=== PATIENT | female | born 1960 | race Caucasian/White ===

== ENCOUNTER 2016-03-22 00:53 | Emergency (ER) | payer OTHER ==
--- NOTE | 2016-03-22 01:31 | ER Document Report ---
ED General - General Chief Complaint: Productive Cough Stated Complaint: COUGHING BLOOD Time seen by provider: 01:30 Notes: Patient is a 55-year-old female that comes emergency department for chief complaint of an episode earlier this evening where she began to cough, coughed up a small amount of blood, felt nauseated, and noticed that she was bleeding from her nose. Patient is on Effient because of a history of heart stents. Patient states that she is no longer coughing up any blood and no longer has bleeding from her nose but she states she became very anxious. Patient is medicated for blood pressure, states she has been compliant with this. TRAVEL OUTSIDE OF THE [place] IN LAST 30 DAYS: No - Related Data Allergies/Adverse Reactions: morphine [Morphine] Allergy (Severe, Verified 03/22/16 01:48) rash, swelling, itching procaine HCl [From Novocain] Allergy (Severe, Verified 03/22/16 01:48) tongue, throat swelling, sob, htn codeine [Codeine] Allergy (Intermediate, Verified 03/22/16 01:48) Nausea hydromorphone HCl [From Dilaudid] Allergy (Mild, Verified 03/22/16 01:48) Itching Opioids - Morphine Analogues [Opioids-Morphine & Related] Allergy (Verified 01:48) Past Medical History - General Information source: Patient - Social History Smoking Status: Current Every Day Smoker Chew tobacco use (# tins/day): No Frequency of alcohol use: None Drug Abuse: None Lives with: Family Family History: Reviewed & Not Pertinent Patient has suicidal ideation: No Patient has homicidal ideation: No - Past Medical History Cardiac Medical History: Reports: Hx Hypertension Denies: Hx Congestive Heart Failure, Hx Heart Attack Pulmonary Medical History: Denies: Hx Asthma, Hx Bronchitis, Hx COPD, Hx Pneumonia, Hx Tuberculosis Neurological Medical History: Reports: Hx Migraine. Denies: Hx Seizures Endocrine Medical History: Reports: Hx Hypothyroidism Renal/ Medical History: Denies: Hx End Stage Renal Disease, Hx Kidney Stones, Hx Peritoneal Dialysis GI Medical History: Denies: Hx Cirrhosis, Hx Gastroesophageal Reflux Disease, Hx Ulcer Musculoskeltal Medical History: Denies Hx Arthritis, Denies Hx Multiple Sclerosis Psychiatric Medical History: Reports: Hx Anxiety, Hx Bipolar Disorder, Hx Depression Denies: Hx Schizophrenia Past Surgical History: Reports: Hx Abdominal Surgery, Hx Appendectomy, Hx Gynecologic Surgery - cervical cryo, Hx Thyroid Surgery, Hx Tonsillectomy - Immunizations Hx Diphtheria, Pertussis, Tetanus Vaccination: Yes Review of Systems - Review of Systems Constitutional: No symptoms reported EENT: See HPI Cardiovascular: No symptoms reported Respiratory: See HPI Gastrointestinal: See HPI Genitourinary: No symptoms reported Female Genitourinary: No symptoms reported Musculoskeletal: No symptoms reported Skin: No symptoms reported Hematologic/Lymphatic: No symptoms reported Neurological/Psychological: No symptoms reported Physical Exam - Vital signs Vitals: Temp Pulse Resp BP Pulse Ox 97.9 F 73 18 198/100 H 97 03/22/16 00:58 03/22/16 00:58 03/22/16 00:58 03/22/16 00:58 03/22/16 00:58 Interpretation: Normal - General General appearance: Anxious In distress: None - HEENT Head: Normocephalic, Atraumatic Eyes: Normal Conjunctiva: Normal Extraocular movements intact: Yes Eyelashes: Normal Pupils: PERRL Sinus: Normal Nasal: Other - Small amount of dried epistaxis in the left there. Irregular septum with a hole in the septum. Mouth/Lips: Normal Mucous membranes: Normal Pharynx: Blood in hypopharynx - Small amount of dried blood in the posterior hypopharynx, no noted current bleeding. No: Uvular edema, Potential airway comprom. Neck: Normal - Respiratory Respiratory status: No respiratory distress. No: Labored, Tachypnea Chest status: Nontender Breath sounds: Normal. No: Decreased air movement, Nonproductive cough, Stridor , Wheezing Chest palpation: Normal - Cardiovascular Rhythm: Regular Heart sounds: Normal auscultation Murmur: No - Abdominal Inspection: Normal Distension: No distension Bowel sounds: Normal Tenderness: Nontender Organomegaly: No organomegaly - Back Back: Normal, Nontender - Extremities General upper extremity: Normal inspection, Nontender, Normal color, Normal ROM , Normal temperature General lower extremity: Normal inspection, Nontender, Normal color, Normal ROM , Normal temperature, Normal weight bearing. No: Lowell's sign - Neurological Neuro grossly intact: Yes Cognition: Normal Orientation: AAOx4 Aron Coma Scale Eye Opening: Spontaneous [place] Coma Scale Verbal: Oriented Aron Coma Scale Motor: Obeys Commands [place] Coma Scale Total: 15 Speech: Normal Motor strength normal: LUE, RUE, LLE, RLE Sensory: Normal - Psychological Associated symptoms: Normal affect, Normal mood - Skin Skin Temperature: Warm Skin Moisture: Dry Skin Color: Normal Course - Re-evaluation Re-evalutation: Patient with small amount of dried blood in her left naris and at the posterior pharynx, clear lungs, no current symptoms. Patient initially anxious. Hypertensive. Discussed with patient that most likely her hemoptysis was from the epistaxis and the nausea sensation in her stomach was also likely from this. Patient requesting a chest x-ray, I did oblige. Chest x-ray was normal. Patient has not had return of epistaxis, blood pressure has normalized after discussion. Discussed epistaxis, patient is on Effient however she was not instructed to hold this because of the long duration of this medication. Patient states satisfaction with workup and evaluation, states she will return for any concerning symptoms and otherwise follow-up with her provider. - Vital Signs Vital signs: Temp Pulse Resp BP Pulse Ox 98.0 F 64 18 132/78 H 99 03/22/16 02:48 03/22/16 02:48 03/22/16 02:48 03/22/16 02:48 03/22/16 02:48 Discharge - Discharge Clinical Impression: Epistaxis, Hemoptysis Condition: Stable Disposition: HOME, SELF-CARE Additional Instructions: By examination and workup it appears that your coughing up blood was from the nosebleed. Please follow nose bleed precautions as directed. Follow-up with your primary provider. Return to the emergency department for any concerning or worsening symptoms. There is a significant chance of re-bleeding following a nosebleed. Proper care makes this less likely. Do not touch the nose for 24 hours. Do not blow the nose forcefully for one week. After 24 hours, gently apply Vaseline ointment to both nostrils with the tip of a finger, three times a day, for one week. It's normal to have a bloody mucous discharge for a few days. If active bleeding recurs, blow all the blood from the nose, then sit quietly and pinch the nose as firmly as possible for 10 minutes. If this does not stop the bleeding, return for further care. If packing was left in the nose and it starts to come out of the nostril, either tuck it back in or cut it off. Don't pull it out. Return for recheck and removal of the packing when instructed. Persons with frequent nosebleeds should avoid aspirin (unless prescribed for another reason). Humidity in the bedroom, and petroleum jelly applied to the nostrils at night may help. Forms: Elevated Blood Pressure Referrals: JETHRO GLASGOW MD [Primary Care Provider] - Follow up as needed
[2016-03-22 02:52] VITALS: BP 132/78
== END 2016-03-22 02:50 | disposition home or self-care (01) ==
LOC: ER 00:53
DX: R04.0 Epistaxis (principal); R04.2 Hemoptysis; R11.0 Nausea; F17.200 Nicotine dependence, unspecified, uncomplicated; I10 Essential (primary) hypertension; Z79.01 Long term (current) use of anticoagulants; Z88.6 Allergy status to analgesic agent
CPT/HCPCS: 71020; 99283

== ENCOUNTER 2016-09-13 08:29 | Observation (INO) | payer OTHER ==
[2016-09-13] MEDS ORDERED: ASPIRIN 81 MG TABLET, CHEWABLE PO ONE (08:45)
[2016-09-13 09:04] LABS: ABSOLUTE BASOPHILS # (AUTO) 0.1 10^3/uL (0.0-0.2); ABSOLUTE EOSINOPHILS # (AUTO) 0.4 10^3/uL (0.0-0.6); ABSOLUTE LYMPHOCYTES (AUTO) 1.7 10^3/uL (0.5-4.7); ABSOLUTE MONOCYTES (AUTO) 0.6 10^3/uL (0.1-1.4); BASOPHILS % (AUTO) 0.7 % (0-2); EOSINOPHILS % (AUTO) 5.7 % (0-6); HEMATOCRIT 40.7 % (36.0-47.0); HEMOGLOBIN 13.8 g/dL (12.0-15.5); HGB HCT DIFFERENCE 0.7; LYMPHOCYTES % (AUTO) 21.6 % (13-45); MEAN CORPUSCULAR HEMOGLOBIN 30.4 pg (27.0-33.4); MEAN CORPUSCULAR HGB CONC 33.9 g/dL (32.0-36.0); MEAN CORPUSCULAR VOLUME 90 fl (80-97); MONOCYTES % (AUTO) 7.4 % (3-13); RED BLOOD COUNT 4.53 10^6/uL (3.72-5.28); RED CELL DISTRIBUTION WIDTH 15.1 % (11.5-14.0); SEGMENTED NEUTROPHILS % (AUTO) 64.6 % (42-78); WHITE BLOOD COUNT 7.7 10^3/uL (4.0-10.5)
[2016-09-13] MEDS ORDERED: IPRATROPIUM/ALBUTEROL 0.5-2.5 MG/3 ML AMPUL NEB ONE (09:07)
[2016-09-13 09:21] LABS: ALANINE AMINOTRANSFERASE 53 U/L (9-52); ALBUMIN 3.8 g/dL (3.5-5.0); ALKALINE PHOSPHATASE 76 U/L (38-126); ANION GAP 9 (5-19); ASPARTATE AMINO TRANSFERASE 28 U/L (14-36); BILIRUBIN,DIRECT 0.4 mg/dL (0.0-0.4); BILIRUBIN,TOTAL 0.5 mg/dL (0.2-1.3); BLOOD UREA NITROGEN 11 mg/dL (7-20); CALCIUM 9.4 mg/dL (8.4-10.2); CARBON DIOXIDE 22 mmol/L (22-30); CHLORIDE 110 mmol/L (98-107); CREATINE KINASE 79 U/L (30-135); CREATININE RESULT 0.75 mg/dL (0.52-1.25); GLUCOSE 90 mg/dL (75-110); POTASSIUM 4.4 mmol/L (3.6-5.0); SODIUM 141.4 mmol/L (137-145); TOTAL PROTEIN 6.5 g/dL (6.3-8.2)
[2016-09-13 09:32] LABS: CREATINE KINASE MB 1.35 ng/mL (<4.55)
[2016-09-13 09:34] LABS: TROPONIN I 0.049 ng/mL
--- NOTE | 2016-09-13 09:45 | RADIOLOGY REPORT (SQ) ---
EXAM DESCRIPTION: CHEST SINGLE VIEW COMPLETED DATE/TIME: 09/13/2016 9:05 am REASON FOR STUDY: chest pain COMPARISON: February 2016 EXAM PARAMETERS: NUMBER OF VIEWS: One view. TECHNIQUE: Single frontal radiographic view of the chest acquired. RADIATION DOSE: NA LIMITATIONS: None. FINDINGS: LUNGS AND PLEURA: No opacities, masses or pneumothorax. No pleural effusion. MEDIASTINUM AND HILAR STRUCTURES: No masses. Contour normal. HEART AND VASCULAR STRUCTURES: Heart normal in size. Normal vasculature. BONES: No acute findings. HARDWARE: None in the chest. OTHER: No other significant finding. IMPRESSION: NO ACUTE RADIOGRAPHIC FINDING IN THE CHEST. TECHNICAL DOCUMENTATION: JOB ID: [id number]
--- NOTE | 2016-09-13 09:59 | ER Document Report ---
ED Cardiac - General Chief Complaint: Chest Pain > 30 Stated Complaint: CHEST PAIN Time Seen by Provider: 09/13/16 08:53 Notes: Patient is a 55-year-old female who presents emergency department complaining of on and off chest pain, shortness of breath and lethargy since . Patient states that she had an episode of chest pain lasting approximately 15 minutes described as a pressure in her chest with associated shortness of breath , diaphoresis, pain shooting into her jaw and in her left shoulder. Patient states that she has been having symptoms since . Become more frequent over the weekend. past medical history significant for a [place] in October 2015 and had 3 stents placed to end her RCA and one in her circumflex. Patient follows with Dr. Olga Franks guidance. Past medical history significant for hypertension, hyperlipidemia, depression, anxiety, history of Lyndsey's, history of pleurisy, history of [place] in October 2014. Past surgical history as above Social history admits to daily tobacco use. Denies any alcohol or drug use. Patient is employed on [employer] and [employer]. Primary care physician is Dr. Jethro Glasgow. TRAVEL OUTSIDE OF THE [place] IN LAST 30 DAYS: No - Related Data Allergies/Adverse Reactions: morphine [Morphine] Allergy (Severe, Verified 03/22/16 01:48) rash, swelling, itching procaine HCl [From Novocain] Allergy (Severe, Verified 03/22/16 01:48) tongue, throat swelling, sob, htn codeine [Codeine] Allergy (Intermediate, Verified 03/22/16 01:48) Nausea hydromorphone HCl [From Dilaudid] Allergy (Mild, Verified 03/22/16 01:48) Itching Opioids - Morphine Analogues [Opioids-Morphine & Related] Allergy (Verified 01:48) Past Medical History - Social History Smoking Status: Current Every Day Smoker Family History: CAD - Past Medical History Cardiac Medical History: Reports: Hx Hypertension Denies: Hx Congestive Heart Failure, Hx Heart Attack Pulmonary Medical History: Denies: Hx Asthma, Hx Bronchitis, Hx COPD, Hx Pneumonia, Hx Tuberculosis Neurological Medical History: Reports: Hx Migraine. Denies: Hx Seizures Endocrine Medical History: Reports: Hx Hypothyroidism Renal/ Medical History: Denies: Hx End Stage Renal Disease, Hx Kidney Stones, Hx Peritoneal Dialysis GI Medical History: Denies: Hx Cirrhosis, Hx Gastroesophageal Reflux Disease, Hx Ulcer Musculoskeltal Medical History: Denies Hx Arthritis, Denies Hx Multiple Sclerosis Psychiatric Medical History: Reports: Hx Anxiety, Hx Bipolar Disorder, Hx Depression Denies: Hx Schizophrenia Past Surgical History: Reports: Hx Abdominal Surgery, Hx Appendectomy, Hx Gynecologic Surgery - cervical cryo, Hx Thyroid Surgery, Hx Tonsillectomy - Immunizations Hx Diphtheria, Pertussis, Tetanus Vaccination: Yes Review of Systems - Review of Systems Constitutional: No symptoms reported Cardiovascular: See HPI Respiratory: See HPI Gastrointestinal: No symptoms reported -: Yes All other systems reviewed and negative Physical Exam - Vital signs Vitals: Resp BP Pulse Ox 9 L 144/93 H 96 09/13/16 08:45 09/13/16 08:45 09/13/16 08:45 - Notes Notes: PHYSICAL EXAM GENERAL: Alert, interacts well. HEAD: Normocephalic, atraumatic. EYES: Pupils equal, round, and reactive to light. Extraocular movements intact. ENT: Oral mucosa moist, tongue midline. NECK: Full range of motion. Supple. Trachea midline. LUNGS: Clear to auscultation bilaterally, no wheezes, rales, or rhonchi. No respiratory distress. HEART: Regular rate and rhythm. No murmurs, gallops, or rubs. ABDOMEN: Soft, nondistended, nontender. No guarding, rebound, or rigidity.. Bowel sounds present in all 4 quadrants. EXTREMITIES: Moves all 4 extremities spontaneously. No edema, radial and dorsalis pedis pulses 2/4 bilaterally. No cyanosis. NEUROLOGICAL: Alert and oriented x4. Normal speech. PSYCH: Normal affect, normal mood. SKIN: Warm, dry, normal turgor. No rashes or lesions noted. Course - Re-evaluation Re-evalutation: 09/13/16 10:01 Patient is very well in appearance, vitals within normal limits. moderate clinical suspicion for ACS given clinical history, exam, but EKG without ST elevations or depressions, and elevated initial troponin. HEART score of 5. PE also seems unlikely given clinical history, absence of tachycardia or dyspnea. Well's score of 0. CXR without evidence of pneumothorax or pneumonia. No widened mediastinum. Aortic dissection also seems unlikely given history, symmetric pulses, CXR, and vitals. At this time will admit to [facility] for stress test and repeat troponin. Patient is in agreement with this plan. Accepted under [employer] Sandi Casper - Vital Signs Vital signs: Temp Pulse Resp BP Pulse Ox 16 148/93 H 100 09/13/16 09:01 09/13/16 09:01 09/13/16 09:01 - Laboratory Result Diagrams: 09/13/16 08:52 09/13/16 08:52 Laboratory results interpreted by me: 09/13/16 09/13/16 08:52 08:52 RDW 15.1 H Chloride 110 H ALT 53 H - EKG Interpretation by Me EKG shows normal: Sinus rhythm. abnormal: ST-T Waves Rate: Normal Rhythm: NSR - Consults Sandi Casper Reason for consultation: 09/13/16 10:03 hospital admission Consulted provider: will come to ER Discharge - Discharge Clinical Impression: Chest pain Qualifiers: Chest pain type: unspecified Qualified Code(s): R07.9 - Chest pain, unspecified Admitting Provider: Hospitalist - [facility] Admitted: Telemetry Referrals: JETHRO GLASGOW MD [Primary Care Provider] - Follow up as needed
[2016-09-13] MEDS ORDERED: NITROGLYCERIN 0.4 MG/TAB 25 TAB/BOTTLE SL PRN (10:00)
[2016-09-13] MEDS ORDERED: ONDANSETRON HCL INJ/PF 4 MG/2 ML SDV IV PRN (10:00)
--- NOTE | 2016-09-13 13:59 | EKG REPORT ---
SEVERITY:- NORMAL ECG - SINUS RHYTHM : Confirmed by: Shannan Pena MD 13-Sep-2016 13:57:36
[2016-09-13] MEDS ORDERED: QUETIAPINE FUMARATE 25 MG TABLET PO SCH (14:00)
--- NOTE | 2016-09-13 14:05 | RADIOLOGY REPORT (SQ) ---
EXAM DESCRIPTION: CTA CHEST COMPLETED DATE/TIME: 09/13/2016 1:39 pm REASON FOR STUDY: Atypical chest pain with SOB, diaphoresis COMPARISON: 06/03/2013 TECHNIQUE: CT scan of the chest performed using helical scanning technique with dynamic intravenous contrast injection. Images reviewed with lung, soft tissue and bone windows. Reconstructed coronal and sagittal MPR images reviewed. Additional 3 dimensional post-processing performed to develop Maximal Intensity Projection images ([place] P). All images stored on PACS. All CT scanners at this facility use dose modulation, iterative reconstruction, and/or weight based d osing when appropriate to reduce radiation dose to as low as reasonably achievable (ALARA). [facility]: Dose Right [facility]: CareDose [facility]: Dose Right [facility]: Teradose 4D [facility]: Liazon CONTRAST TYPE AND DOSE: contrast/concentration: Isovue 370.00 mg/ml; Total Contrast Delivered: 67.0 ml; Total Saline Delivered: 110.0 ml RENAL FUNCTION: GFR > 60. RADIATION DOSE: Up-to-date CT equipment and radiation dose reduction techniques were employed. CTDIv ol: 9.4 - 15.5 mGy. DLP: 612 mGy-cm. . LIMITATIONS: None. FINDINGS: LUNGS AND PLEURA: No masses, infiltrates, pneumothorax. No pleural effusions, calcificati ons. AORTA AND GREAT VESSELS: No aneurysm or dissection. HEART: No pericardial effusion. PULMONARY ARTERIES: No emboli visualized in the main pulmonary arteries or the segmental branches. HILAR AND MEDIASTINAL STRUCTURES: No identified masses or abnormal nodes. HARDWARE: None in the chest. UPPER ABDOMEN: No significant findings. Limited exam. THYROID AND OTHER SOFT TISSUES: No masses. No adenopathy. BONES: No acute or significant finding. 3D MIPS: Confirm above findings. OTHER: No other significant finding. IMPRESSION: NORMAL CTA OF THE CHEST. NO PULMONARY EMBOLI. TECHNICAL DOCUMENTATION: JOB ID: [id number] Quality ID # [id number]: Final reports with documentation of one or more dose reduction techniques (e.g., Au tomated exposure control, adjustment of the mA and/or kV according to patient size, use of iterative reconstruction technique) 2010 [employer]- All Rights Reserved
--- NOTE | 2016-09-13 14:12 | PDOC H&P ---
History of Present Illness Admission Date/PCP: 09/13/16 10:08 JETHRO GLASGOW MD Patient complains of: Chest pain and shortness of breath History of Present Illness: JHON HUBBARD is a 55 year old female Patient who presents emergency department complaining of on and off chest pain, shortness of breath and lethargy since . Patient states that she had an episode of chest pain lasting approximately 15 minutes described as a pressure in her chest with associated shortness of breath, diaphoresis, pain shooting into her jaw and in her left shoulder. Patient states that she has been having symptoms since . Become more frequent over the weekend. Her past medical history significant for a [place] in October 2015 and had 3 stents placed to end her RCA and one in her circumflex. Patient follows with Dr. Soliz at [facility] for [facility]ology. Past medical history significant for hypertension, hyperlipidemia, depression, anxiety, history of Lyndsey's, history of pleurisy, history of [place] in October 2014. Past surgical history as above Social history admits to daily tobacco use. Denies any alcohol or drug use. Patient is [place] in [employer]. Past Medical History Cardiac Medical History: Reports: Myocardial Infarction, Hypertension Denies: Congestive Heart Failure Pulmonary Medical History: Denies: Asthma, Bronchitis, Chronic Obstructive Pulmonary Disease (COPD), Pneumonia, Tuberculosis EENT Medical History: Reports: None Neurological Medical History: Reports: None, Migraine Denies: Seizures Endocrine Medical History: Reports: Hypothyroidism Renal/ Medical History: Reports: None Denies: End Stage Renal Disease Malignancy Medical History: Reports: None GI Medical History: Denies: Cirrhosis, Gastroesophageal Reflux Disease Musculoskeltal Medical History: Denies: Arthritis Skin Medical History: Reports: None Psychiatric Medical History: Reports: None, Bipolar Disorder, Depression Traumatic Medical History: Reports: None Hematology: Reports: None Denies: Anemia, Bleeding Tendencies Past Surgical History Past Surgical History: Reports: Appendectomy, Tonsillectomy Social History Information Source: Patient Lives with: Spouse/Significant other Smoking Status: Current Every Day Smoker Cigarettes Packs Per Day: 0.5 Number of Years Smokin Frequency of Alcohol Use: Rare Hx Recreational Drug Use: No Hx Prescription Drug Abuse: No - Advance Directive Resuscitation Status: Full Code Family History Family History: CAD Parental Family History Reviewed: Yes Children Family History Reviewed: Yes Sibling(s) Family History Reviewed.: Yes Medication/Allergy Home Medications: Aspirin [Aspirin 81 mg Chewable Tablet] 81 mg PO DAILY 09/13/16 Atorvastatin Calcium [Lipitor 80 mg Tablet] 80 mg PO QHS 09/13/16 Levothyroxine Sodium [Synthroid] 137 mcg PO DAILY 09/13/16 Liothyronine Sodium [Cytomel 25 Mcg Tablet] 25 mcg PO QHS 09/13/16 Losartan/Hydrochlorothiazide [Hyzaar 100-12.5 Tablet] 1 tab PO QHS 09/13/16 Metoprolol Succinate 25 mg PO DAILY 09/13/16 Quetiapine Fumarate [Seroquel 25 mg Tablet] 25 mg PO TID 09/13/16 Sertraline HCl [Zoloft] 100 mg PO QHS 09/13/16 Trazodone HCl 150 mg PO QHS 09/13/16 Allergies/Adverse Reactions: morphine [Morphine] Allergy (Severe, Verified 03/22/16 01:48) rash, swelling, itching procaine HCl [From Novocain] Allergy (Severe, Verified 03/22/16 01:48) tongue, throat swelling, sob, htn codeine [Codeine] Allergy (Intermediate, Verified 03/22/16 01:48) Nausea hydromorphone HCl [From Dilaudid] Allergy (Mild, Verified 03/22/16 01:48) Itching Opioids - Morphine Analogues [Opioids-Morphine & Related] Allergy (Verified 01:48) Review of Systems Constitutional: ABSENT: chills, fever(s), headache(s), weight gain, weight loss Eyes: ABSENT: visual disturbances Ears: ABSENT: hearing changes Cardiovascular: PRESENT: chest pain, dyspnea on exertion. ABSENT: edema, orthropnea, palpitations Respiratory: PRESENT: dyspnea Gastrointestinal: ABSENT: abdominal pain, constipation, diarrhea, hematemesis, hematochezia, nausea, vomiting Genitourinary: ABSENT: dysuria, hematuria Musculoskeletal: ABSENT: joint swelling Integumentary: ABSENT: rash, wounds Neurological: ABSENT: abnormal gait, abnormal speech, confusion, dizziness, focal weakness, syncope Psychiatric: ABSENT: anxiety, depression, homidical ideation, suicidal ideation Endocrine: ABSENT: cold intolerance, heat intolerance, polydipsia, polyuria Hematologic/Lymphatic: ABSENT: easy bleeding, easy bruising Physical Exam Vital Signs: Temp Pulse Resp BP Pulse Ox 98.4 F 9 L 136/84 H 99 09/13/16 08:33 09/13/16 11:01 09/13/16 11:01 09/13/16 11:01 General appearance: PRESENT: no acute distress, well-developed, well-nourished Head exam: PRESENT: atraumatic, normocephalic Eye exam: PRESENT: conjunctiva pink, EOMI, PERRLA. ABSENT: scleral icterus Ear exam: PRESENT: normal external ear exam Mouth exam: PRESENT: moist, tongue midline Neck exam: ABSENT: carotid bruit, JVD, lymphadenopathy, thyromegaly Respiratory exam: PRESENT: clear to auscultation rian. ABSENT: rales, rhonchi, wheezes Cardiovascular exam: PRESENT: RRR. ABSENT: diastolic murmur, rubs, systolic murmur Pulses: PRESENT: normal dorsalis pedis pul Vascular exam: PRESENT: normal capillary refill GI/Abdominal exam: PRESENT: normal bowel sounds, soft. ABSENT: distended, guarding, mass, organolmegaly, rebound, tenderness Rectal exam: PRESENT: deferred Extremities exam: PRESENT: full ROM. ABSENT: calf tenderness, clubbing, pedal edema Neurological exam: PRESENT: alert, awake, oriented to person, oriented to place , oriented to time, oriented to situation, CN II-XII grossly intact. ABSENT: motor sensory deficit Psychiatric exam: PRESENT: appropriate affect, normal mood. ABSENT: homicidal ideation, suicidal ideation Skin exam: PRESENT: dry, intact, warm. ABSENT: cyanosis, rash Results Laboratory Results: 09/13/16 12:31 Troponin I 0.051 Impressions: Chest X-Ray 09/13/16 08:45 IMPRESSION: NO ACUTE RADIOGRAPHIC FINDING IN THE CHEST. Assessment & Plan - Diagnosis (1) Chest pain Qualifiers: Chest pain type: chest pain on breathing Qualified Code(s): R07.1 - Chest pain on breathing Is this a current diagnosis for this admission?: YesPlan: Pain is atypical for cardiac, she is experiencing shortness of breath which is new Will obtain serial troponins. CTA of the chest to rule out PE. Cardiolite stress test in the am. (2) Hypertension Qualifiers: Hypertension type: essential hypertension Qualified Code(s): I10 - Essential (primary) hypertension Is this a current diagnosis for this admission?: YesPlan: Will hold metoprolol for stress test in the am. Will monitor (3) Hypothyroid Qualifiers: Hypothyroidism type: acquired Qualified Code(s): E03.9 - Hypothyroidism, unspecified Is this a current diagnosis for this admission?: Yes (4) Tobacco abuse Is this a current diagnosis for this admission?: YesPlan: Counseled - Time Time Spent: 50 to 70 Minutes Critical Time spent with patient: 25-34 minutes Smoking Cessation Education: 3 to 10 minutes Medications reviewed and adjusted accordingly: Yes Anticipated discharge: Home
[2016-09-13] MEDS: ASPIRIN 81 MG TABLET, ENT COATED PO SCH (14:18)
[2016-09-13] MEDS: QUETIAPINE FUMARATE 25 MG TABLET PO SCH ×2 (14:23→18:22)
[2016-09-13] MEDS ORDERED: HYDROCHLOROTHIAZIDE 12.5 MG CAPSULE PO SCH (22:00)
[2016-09-13] MEDS ORDERED: ATORVASTATIN CALCIUM 40 MG TABLET PO SCH (22:00)
[2016-09-13] MEDS ORDERED: (PENDING PHARMACY ID) (Losartan/Hydrochlorothiazide [Hyzaar 100-12.5 Tablet] 1 TAB) PO SCH (22:00)
[2016-09-14] MEDS: TRAZODONE HCL 50 MG TABLET PO SCH ×2 (00:22→22:56)
[2016-09-14] MEDS: SERTRALINE HCL 50 MG TABLET PO SCH ×2 (00:24→22:59)
[2016-09-14] MEDS: ATORVASTATIN CALCIUM 80 MG TABLET PO SCH ×2 (00:25→22:56)
[2016-09-14] MEDS: LOSARTAN POTASSIUM 50 MG TABLET PO SCH ×2 (00:27→22:56)
[2016-09-14] MEDS: LIOTHYRONINE SODIUM 25 MCG TABLET PO SCH ×2 (00:30→23:08)
[2016-09-14] MEDS: LEVOTHYROXINE SODIUM 0.112 MG TABLET PO SCH (05:50)
[2016-09-14] MEDS: LEVOTHYROXINE SODIUM 0.025 MG TABLET PO SCH (05:50)
[2016-09-14 07:09] LABS: CHOLESTEROL 217.17 mg/dL (0-200); Direct HDL 32 mg/dL (>40); TRIGLYCERIDES 382 mg/dL (<150)
[2016-09-14 07:22] LABS: DIRECT LDL < 30 mg/dL (<100); VLDL CHOLESTEROL 76.4 mg/dL (10-31)
[2016-09-14] MEDS ORDERED: (PENDING PHARMACY ID) (Levothyroxine Sodium [Synthroid] 137 MCG) PO SCH (10:00)
[2016-09-14] MEDS ORDERED: ASPIRIN 81 MG TABLET, CHEWABLE PO SCH (10:00)
[2016-09-14] MEDS: ASPIRIN 81 MG TABLET, ENT COATED PO SCH (11:44)
[2016-09-14] MEDS: QUETIAPINE FUMARATE 25 MG TABLET PO SCH ×3 (11:44→17:25)
--- NOTE | 2016-09-14 12:43 | DRAGON STRESS TEST REPORT ---
INTRAVENOUS LEXISCAN CARDIOLITE STRESS TEST USING SINGLE PHOTON EMMISION COMPUTERIZED TOMOGRAPHIC. DATE OF PROCEDURE: September 14, 2016 INDICATION : Chest pain CARDIAC RISK FACTORS: Known CAD, tobacco abuse hypertension, dyslipidemia RESTING EKG: Sinus rhythm without any baseline ST-T wave changes STRESS EKG: No significant changes noted with LexiScan bolus REASON FOR TERMINATION: Protocol. PROCEDURE REPORT: Baseline heart rate 60 beats per minute with blood pressure of 121/66. Patient had no significant complaints. Heart rate at 2 minutes post bolus 85 with a blood pressure of 122/58. 3 minutes post bolus heart rate 73 with blood pressure of 131/62. No significant EKG changes were noted. Patient had no significant complaints during the procedure or postprocedure. Patient injected with Aminophyllin 75 mg at 3 minutes or later after Lexiscan bolus. CONCLUSIONS: Normal EKG and hemodynamic response to IV LexiScan. NUCLEAR DATA: At rest the patient was given 14.34 millicuries of technetium 99 sestamibi injected intravenously. As per protocol rest gated SPECT images were obtained. Subsequently the patient was given intravenous LexiScan at a dose of 0.4 mg in 5 mL intravenously, followed by flush with normal saline. Subsequently the stress dose of 44.6 millicuries of technetium 99 sestamibi was injected intravenously. As per protocol stress gated images were obtained. NUCLEAR INTERPRETATION: Both raw and processed data were used for interpretation. Visual, qualitative, computer-generated quantitative data was used. There was good myocardial uptake of technetium compound. Motion artifact and soft tissue attenuations were noted. Increased visceral uptake was noted. Area of mild decreased uptake noted in the basal and mid inferior wall, consistent with mild ischemia. No definitive areas of fixed perfusion defect or scars noted. EKG gated imaging showed LV EF at 60 %, rest and stress gated EF similar visually, basal inferior wall hypokinesia noted. T. I D. ratio was 1.01. Lung heart ratio noted to be within normal limits 0.36. No significant extracardiac and abnormal radiotracer activities were noted. RV free wall uptake was noted to be borderline increased. IMPRESSION: Also refer to comments under nuclear interpretation. Also test results needs to be interpreted in the context of pretest probability. 1. Mild transient perfusion defect consistent with mild ischemia noted in the basal and mid inferior wall. 2. There is no definitive scintigraphic evidence of myocardial infarction/scar. 3. EKG gated imaging shows left ejection fraction of approximately 60 %. 4. Clinical correlation requested as occasionally single vessel disease or balanced ischemia could be missed. In approximately 10% of the cases Lexiscan may not cause adequate vasodilatory stress. RECOMMENDATIONS: Aggressive risk factor modification, medical therapy. May consider heart catheterization if clinically indicated and if patient has significant symptoms. Clinical correlation with echocardiogram derived ejection fraction. Inability to exercise by itself can lead to increased cardiovascular event risks. Consider cardiology consultation and or follow-up if clinically indicated. I AM AVAILABLE FOR CARDIOLOGY CONSULTATION AND FOLLOWUP IF REQUESTED BY PMD Arya Chinchilla M.D., NOELLE Audioprosthologist floor broker, Board certified in cardiovascular diseases, Nuclear cardiology, Echocardiography Cardiac CT and cardiac MRI Ph. [phone] ELIU
[2016-09-14] MEDS ORDERED: REGADENOSON INJ 0.4 MG/5 ML DISP.SYRIN IV ONE (13:14)
[2016-09-14] MEDS ORDERED: AMINOPHYLLINE INJ/PF 250 MG/10 ML SDV IV ONE (13:14)
--- NOTE | 2016-09-14 19:41 | PDOC CONSULTATION ---
Consultation Consult Date: 09/14/16 Attending physician:: ALVAREZ RAYGOZA Consult reason:: Chest pain, positive stress test History of Present Illness Admission Date/PCP: 09/13/16 10:01 JETHRO GLASGOW MD Patient complains of: Chest pain History of Present Illness: JHON HUBBARD is a 55 year old female Patient who presents emergency department complaining of on and off chest pain, shortness of breath and lethargy since . Patient states that she had an episode of chest pain lasting approximately 15 minutes described as a pressure in her chest with associated shortness of breath, diaphoresis, pain shooting into her jaw and in her left shoulder. Patient states that she has been having symptoms since . Become more frequent over the weekend. Her past medical history significant for a WA in October 2015 and had 3 stents placed to end her RCA and one in her circumflex. Patient follows with Dr. Soliz at [facility] for cardiology. Past medical history significant for hypertension, hyperlipidemia, depression, anxiety, history of Lyndsey's, history of pleurisy, history of WA in October 2014. Past surgical history as above Social history admits to daily tobacco use. Denies any alcohol or drug use. [place] [employer]. Patient underwent a stress test today which showed mild ischemia involving the basal and mid inferior wall. No other high risk features were noted. Patient attempted to walk this afternoon and was noted to have chest discomfort. She denied any resting discomfort since admission. Patient claims compliance with medication but she was supposed to be on dual antiplatelet therapy but seems to be taking only aspirin. Past Medical History Cardiac Medical History: Reports: Myocardial Infarction, Hypertension Denies: Congestive Heart Failure Pulmonary Medical History: Denies: Asthma, Bronchitis, Chronic Obstructive Pulmonary Disease (COPD), Pneumonia, Tuberculosis EENT Medical History: Reports: None Neurological Medical History: Reports: None, Migraine Denies: Seizures Endocrine Medical History: Reports: Hypothyroidism Renal/ Medical History: Reports: None Denies: End Stage Renal Disease Malignancy Medical History: Reports: None GI Medical History: Denies: Cirrhosis, Gastroesophageal Reflux Disease Musculoskeltal Medical History: Denies: Arthritis Skin Medical History: Reports: None Psychiatric Medical History: Reports: None, Bipolar Disorder, Depression Traumatic Medical History: Reports: None Hematology: Reports: None Denies: Anemia, Bleeding Tendencies Past Surgical History Past Surgical History: Reports: Appendectomy, Cardiac Catheterization, Coronary Stent - Stent in the circumflex and right coronary artery placed October 2015 , Tonsillectomy Social History Information Source: Patient Lives with: Spouse/Significant other Smoking Status: Current Every Day Smoker Cigarettes Packs Per Day: 0.5 Number of Years Smokin Frequency of Alcohol Use: Rare Hx Recreational Drug Use: No Hx Prescription Drug Abuse: No - Advance Directive Resuscitation Status: Full Code Family History Family History: CAD Parental Family History Reviewed: Yes Children Family History Reviewed: Yes Sibling(s) Family History Reviewed.: Yes Medication/Allergy Home Medications: Aspirin [Aspirin 81 mg Chewable Tablet] 81 mg PO DAILY 09/13/16 Atorvastatin Calcium [Lipitor 80 mg Tablet] 80 mg PO QHS 09/13/16 Levothyroxine Sodium [Synthroid] 137 mcg PO DAILY 09/13/16 Losartan/Hydrochlorothiazide [Hyzaar 100-12.5 Tablet] 1 tab PO QHS 09/13/16 Metoprolol Succinate 25 mg PO DAILY 09/13/16 Quetiapine Fumarate [Seroquel 25 mg Tablet] 25 mg PO TID 09/13/16 Sertraline HCl [Zoloft] 100 mg PO QHS 09/13/16 Trazodone HCl 150 mg PO QHS 09/13/16 Famotidine [Pepcid 20 mg Tablet] 20 mg PO BID #12 tablet 09/14/16 Liothyronine Sodium [Cytomel 25 Mcg Tablet] 25 mcg PO QHS tablet 09/14/16 Allergies/Adverse Reactions: morphine [Morphine] Allergy (Severe, Verified 03/22/16 01:48) rash, swelling, itching procaine HCl [From Novocain] Allergy (Severe, Verified 03/22/16 01:48) tongue, throat swelling, sob, htn codeine [Codeine] Allergy (Intermediate, Verified 03/22/16 01:48) Nausea hydromorphone HCl [From Dilaudid] Allergy (Mild, Verified 03/22/16 01:48) Itching Opioids - Morphine Analogues [Opioids-Morphine & Related] Allergy (Verified 01:48) Review of Systems Review of Systems: Please see history of present illness and past medical history as wall. Constitutional: No fever or chills reported. Head : No recent chronic headaches, recent head injury. Eyes: No recent eye pain, diplopia, redness, discharge, acute visual changes. Ears: No recent chronic ear pain, acute hearing loss, ear discharge. Oral cavity: No recent ulcerations, bleeding, oral cavity discomfort. Neck: No recent acute neck pain reported. Hematologic: No recent easy bruising or bleeding or hematologic malignancy reported. Lymphatic: No recent lymphatic malignancy, chronic lymphadenopathy reported yet Cardiovascular system review: See history of present illness. Respiratory system review: No recent chronic cough, hemoptysis, blood clots in the lungs reported. Mild Shortness of breath on exertion Gastrointestinal system review: Negative for any recent acute or chronic abdominal pain, hematemesis, melena, recent change in bowel habits. Genitourinary system review: No recent acute or chronic hematuria, flank pain, UTI etc. reported. Skin system review: Negative for any recent abnormal bruising, no rash, no pruritus reported. Neurologic: No prior history of strokes, mini strokes, seizure disorder. Psychologic: No history of major psychosis or major depression reported. Musculoskeletal: Minor aches and pains reported. No acute joint swelling reported. Endocrine: No recent polyuria, polydipsia, recent heat or cold intolerance. Physical Exam Vital Signs: Temp Pulse Resp BP Pulse Ox 97.6 F 77 19 146/81 H 98 09/14/16 15:55 09/14/16 15:55 09/14/16 15:55 09/14/16 15:55 09/14/16 15:55 Intake & Output 09/13/16 09/14/16 09/15/16 06:59 06:59 06:59 Intake Total 969 222 Balance 969 222 Weight 103.2 kg Exam: GENERAL: well-nourished and in no acute distress. Alert and oriented x3 HEAD: Atraumatic, normocephalic. EYES: Pupils equal round and reactive to light, extraocular movements intact, sclera anicteric, conjunctiva are normal. ENT: TMs normal, nares patent, oropharynx clear without exudates. Moist mucous membranes. No oral ulcerations or bleeding gums noted NECK: supple without lymphadenopathy. Trachea is central. No cervical or axillary lymphadenopathy noted. Carotids are 2+, JVD WNL LUNGS: Respiration seems nonlabored, no significant accessory muscle action noted. Breath sounds clear to auscultation bilaterally and equal noted. No wheezes rales or rhonchi noted. No significant dullness noted on percussion. CHEST: Palpation of the chest wall shows no significant chest wall tenderness. No other significant abnormalities noted. HEART: [place] NURSE CHARGE RN, No PSH, 1/6 ANNA aortic area, 1/6 lopez systolic murmur mitral area, no rubs, no gallops. ABDOMEN: Soft, no significant tenderness appreciated, normoactive bowel sounds. No guarding, no rebound. No rigidity noted . No masses appreciated. EXTREMITIES: Pedal pulses are 1-2+, no calf tenderness noted. No clubbing or cyanosis.trace to 1+ pedal edema noted NEUROLOGICAL: Focused neurological exam showed no significant neurologic deficit. Normal speech, no focal weakness appreciated. PSYCH: Normal mood, normal affect. Judgment and insight within normal limits. SKIN: No significant ecchymosis, rash, ulcerations or signs of pruritus noted. MUSCULOSKELETAL EXAM: No significant joint swelling noted. Results Laboratory Results: 09/14/16 06:30 Triglycerides 382 H Cholesterol 217.17 H LDL Cholesterol Direct < 30 VLDL Cholesterol 76.4 H HDL Cholesterol 32 L 09/13/16 09/13/16 09/14/16 12:31 18:27 00:21 Troponin I 0.051 0.049 0.040 09/14/16 06:30 Troponin I 0.027 EKG Comments: Sinus rhythm, minor nonspecific T-wave inversion noted. Impressions: Chest/Abdomen CTA 09/13/16 00:00 IMPRESSION: NORMAL CTA OF THE CHEST. NO PULMONARY EMBOLI. Chest X-Ray 09/13/16 08:45 IMPRESSION: NO ACUTE RADIOGRAPHIC FINDING IN THE CHEST. Assessment & Plan - Diagnosis (1) Acute coronary syndrome Is this a current diagnosis for this admission?: Yes (2) Coronary artery disease Qualifiers: Coronary Disease-Associated Artery/Lesion type: [place] artery [place] vs. transplanted heart: [place] heart Associated angina: with unstable angina Qualified Code(s): I25.110 - Atherosclerotic heart disease of [place] coronary artery with unstable angina pectoris Is this a current diagnosis for this admission?: Yes (3) Chest pain Qualifiers: Chest pain type: unspecified Qualified Code(s): R07.9 - Chest pain, unspecified Is this a current diagnosis for this admission?: Yes (4) Hypertension Qualifiers: Hypertension type: essential hypertension Qualified Code(s): I10 - Essential (primary) hypertension Is this a current diagnosis for this admission?: Yes (5) Hypothyroid Qualifiers: Hypothyroidism type: acquired Qualified Code(s): E03.9 - Hypothyroidism, unspecified Is this a current diagnosis for this admission?: Yes (6) Tobacco abuse Is this a current diagnosis for this admission?: Yes - Notes Notes: Acute coronary syndrome: This is strongly suspected based on patient's symptoms , positive stress test and some minor nonspecific T-wave inversion. At this point will treat patient with full dose anticoagulation, antiplatelet therapy, statins, beta-ivan, angiotensin receptor blockers. Have added Ranexa. Coronary artery disease: Patient gives history of stent placement in October. Currently symptoms indicative of acute coronary syndrome. Discussed pursuing heart catheterization. Patient unwilling to decide today. Will talk about it also in the morning. Chest pain: Most likely related to cardiac ischemia but will go ahead and place her on some proton pump inhibitors. Hypertension: Reasonably well controlled. Blood pressure goal in this patient is 135/85 or less. This was discussed with the patient. Currently blood pressure under reasonable control. Better medication for this patient are MARJAN inhibitor/ARB/beta ivan etc. discussed side effects of uncontrolled hypertension and also severe hypotension. Tobacco abuse: Patient has been advised to quit smoking. She is not keeping any commitment to quit at this point. Hypothyroidism: Continue replacement therapy. Dyslipidemia: Continue high potency statin therapy. - Time Time Spent: 50 to 70 Minutes - CODE STATUS was discussed, patient remains full code. Surrogate decision-maker unchanged. Multiple medical problems were addressed. More than 50% of the time spent coordinating care, discussing management plans with involved caregivers. Management plans discussed with involved personnels. Medical decision making was of moderate to high complexity , patient's has multiple comorbidities. Medications reviewed and adjusted accordingly: Yes
--- NOTE | 2016-09-14 19:47 | XCELERA REPORT ---
[address] [address] Transthoracic Echocardiogram Report Name: JHON HUBBARD Age: 55 yrs Gender: Female : 1960 Patient Status: Inpatient Patient Location: 3W\S\320\S\A Study Date: 09/14/2016 03:13 PM Height: 66 in Weight: 227 lb BSA: 2.1 m2 Procedure: A complete two-dimensional transthoracic echocardiogram was performed (2D, M-mode, spectral and color flow Doppler). The study was technically adequate with some images being suboptimal in quality. Reason For Study: CP to today Ordering Physician: ARYA AGUILAR Performed By: Georgiana Hyman Interpretation Summary The left ventricular ejection fraction is normal. There is mild concentric left ventricular hypertrophy. Doppler measurements suggest pseudonormalized left ventricular relaxation, which is associated with grade II/IV or mild to moderate diastolic dysfunction The left ventricle is grossly normal size. Wall motion cannot be accurately commented on, but no definite regional wall motion abnormalities noted. The right ventricular systolic function is normal. The right atrium is normal in size The left atrial size is normal. There is no mitral valve stenosis. There is a trace amount of mitral regurgitation No aortic regurgitation is present. There is no aortic valve stenosis There is a trace or physiologic amount of tricuspid regurgitation Tricuspid regurgitation jet envelope not well defined to measure RV systolic pressure accurately. There is no pericardial effusion. MMode/2D Measurements \T\ Calculations RVDd: 2.9 cm LVIDd: 4.4 cm FS: 33.7 % Ao root diam: 3.4 cm IVSd: 1.1 cm LVIDs: 2.9 cm EDV(Teich): 86.3 ml LVPWd: 1.3 cm ESV(Teich): 32.1 ml Ao root area: 9.3 cm2 EF(Teich): 62.8 % LA dimension: 3.4 cm LVOT diam: 2.0 cm LVOT area: 3.3 cm2 Doppler Measurements \T\ Calculations MV E max patria: MV P1/2t max patria: Ao V2 max: LV V1 max P.5 cm/sec 77.0 cm/sec 151.3 cm/sec 8.6 mmHg MV A max patria: MV P1/2t: 70.7 msec Ao max PG: LV V1 max: 72.1 cm/sec MVA(P1/2t): 3.1 cm2 9.2 mmHg 146.6 cm/sec MV E/A: 1.1 MV dec slope: BAYRON(V,D): 3.2 cm2 319.0 cm/sec2 PA V2 max: TR max patria: 100.7 cm/sec 208.5 cm/sec PA max PG: TR max P.4 mmHg 4.1 mmHg Left Ventricle The left ventricle is grossly normal size. There is mild concentric left ventricular hypertrophy. The left ventricular ejection fraction is normal. Doppler measurements suggest pseudonormalized left ventricular relaxation, which is associated with grade II/IV or mild to moderate diastolic dysfunction. Wall motion cannot be accurately commented on, but no definite regional wall motion abnormalities noted. Right Ventricle The right ventricle is grossly normal size. There is normal right ventricular wall thickness. The right ventricular systolic function is normal. Atria The right atrium is normal in size. The left atrial size is normal. Interarterial septum not well visualized and not well dopplered. Cannot comment on ASD/PFO presence. Mitral Valve The mitral valve is grossly normal. There is no mitral valve stenosis. There is a trace amount of mitral regurgitation. Aortic Valve The aortic valve is grossly normal. There is no aortic valve stenosis. No aortic regurgitation is present. Tricuspid Valve The tricuspid valve is not well visualized, but is grossly normal. There is no tricuspid stenosis. There is a trace or physiologic amount of tricuspid regurgitation. Tricuspid regurgitation jet envelope not well defined to measure RV systolic pressure accurately. Pulmonic Valve The pulmonic valve is not well visualized. Great Vessels The aortic root is not well visualized but is probably normal size. The inferior vena cava appeared normal and decreased > 50% with respiration (RAP 5-10 mmHg). Effusions There is no pericardial effusion. : ARYA AGUILAR > Arya Aguilar
[2016-09-14] MEDS ORDERED: LANSOPRAZOLE 30 MG TAB.RAP.DR PO ONE (20:00)
[2016-09-14] MEDS ORDERED: RANOLAZINE 500 MG TAB.SR.12H PO ONE (20:00)
[2016-09-14] MEDS ORDERED: ISOSORBIDE MONONITRATE 30 MG TAB.ER.24H PO ONE (20:00)
[2016-09-14] MEDS ORDERED: CLOPIDOGREL BISULFATE 300 MG TABLET PO ONE (20:00)
[2016-09-14] MEDS: METOPROLOL SUCCINATE 25 MG TAB.SR.24H PO SCH (22:58)
[2016-09-14] MEDS: ENOXAPARIN SODIUM INJ 100 MG/1 ML DISP.SYRIN SUBCUT SCH (23:01)
[2016-09-15] MEDS: LEVOTHYROXINE SODIUM 0.112 MG TABLET PO SCH (05:44)
[2016-09-15] MEDS: LEVOTHYROXINE SODIUM 0.025 MG TABLET PO SCH (05:44)
[2016-09-15 06:36] LABS: HEMATOCRIT 40.4 % (36.0-47.0); HEMOGLOBIN 13.6 g/dL (12.0-15.5); HGB HCT DIFFERENCE 0.4; MEAN CORPUSCULAR HEMOGLOBIN 30.2 pg (27.0-33.4); MEAN CORPUSCULAR HGB CONC 33.6 g/dL (32.0-36.0); MEAN CORPUSCULAR VOLUME 90 fl (80-97); RED BLOOD COUNT 4.49 10^6/uL (3.72-5.28); RED CELL DISTRIBUTION WIDTH 14.8 % (11.5-14.0); WHITE BLOOD COUNT 6.5 10^3/uL (4.0-10.5)
[2016-09-15 08:31] VITALS: BP 108/66
[2016-09-15] MEDS ORDERED: CLOPIDOGREL BISULFATE 300 MG TABLET PO SCH (10:00)
[2016-09-15] MEDS ORDERED: ISOSORBIDE MONONITRATE 30 MG TAB.ER.24H PO SCH (10:00)
[2016-09-15] MEDS ORDERED: FENOFIBRATE NANOCRYSTALLIZED 48 MG TABLET PO SCH (10:00)
[2016-09-15] MEDS ORDERED: RANOLAZINE 500 MG TAB.SR.12H PO SCH (10:00)
[2016-09-15] MEDS ORDERED: CLOPIDOGREL BISULFATE 75 MG TABLET PO SCH (10:00)
[2016-09-15] MEDS: ENOXAPARIN SODIUM INJ 100 MG/1 ML DISP.SYRIN SUBCUT SCH (10:04)
[2016-09-15] MEDS: QUETIAPINE FUMARATE 25 MG TABLET PO SCH (10:10)
[2016-09-15] MEDS: ASPIRIN 81 MG TABLET, ENT COATED PO SCH (10:12)
[2016-09-15] MEDS: METOPROLOL SUCCINATE 25 MG TAB.SR.24H PO SCH (10:33)
--- NOTE | 2016-09-15 11:13 | PDOC PROGRESS REPORT ---
Subjective Progress Note for:: 09/15/16 Subjective:: Patient seems to be doing better with gradual improvement. Pt is denying any chest arm or neck discomfort. Patient denying any PND, orthopnea. Patient denied any sustained palpitations, dizziness, syncope, near syncope. Patient denying any fever chills. Patient denying any other significant discomfort. Patient is maintaining sinus rhythm. Mild intermittent bradycardia noted but asymptomatic. Review of systems: Rest review of systems negative. Medications: Medications have been reviewed. Physical Exam Vital Signs: Temp Pulse Resp BP Pulse Ox 98 F 55 L 18 108/66 93 09/15/16 11:00 09/15/16 11:00 09/15/16 11:00 09/15/16 11:00 09/15/16 11:00 Intake & Output 09/14/16 09/15/16 09/16/16 06:59 06:59 06:59 Intake Total 969 337 Balance 969 337 Weight 103.2 kg 102.9 kg Exam: GENERAL: well-nourished and in no acute distress. Alert and oriented x3 HEAD: Atraumatic, normocephalic. EYES: Pupils equal round and reactive to light, extraocular movements intact, sclera anicteric, conjunctiva are normal. ENT: TMs normal, nares patent, oropharynx clear without exudates. Moist mucous membranes. No oral ulcerations or bleeding gums noted NECK: supple without lymphadenopathy. Trachea is central. No cervical or axillary lymphadenopathy noted. Carotids are 2+, JVD WNL LUNGS: Respiration seems nonlabored, no significant accessory muscle action noted. Breath sounds clear to auscultation bilaterally and equal noted. No wheezes rales or rhonchi noted. No significant dullness noted on percussion. CHEST: Palpation of the chest wall shows no significant chest wall tenderness. No other significant abnormalities noted. 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 ABDOMEN: Soft, no significant tenderness appreciated, normoactive bowel sounds. No guarding, no rebound. No rigidity noted . No masses appreciated. EXTREMITIES: Pedal pulses are 1-2+, no calf tenderness noted. No clubbing or cyanosis.trace to 1+ pedal edema noted NEUROLOGICAL: Focused neurological exam showed no significant neurologic deficit. Normal speech, no focal weakness appreciated. PSYCH: Normal mood, normal affect. Judgment and insight within normal limits. SKIN: No significant ecchymosis, rash, ulcerations or signs of pruritus noted. MUSCULOSKELETAL EXAM: No significant joint swelling noted. Results Laboratory Results: 09/15/16 06:03 09/15/16 06:03 WBC 6.5 RBC 4.49 Hgb 13.6 Hct 40.4 MCV 90 MCH 30.2 MCHC 33.6 RDW 14.8 H Plt Count 202 09/13/16 09/13/16 09/14/16 12:31 18:27 00:21 Troponin I 0.051 0.049 0.040 09/14/16 06:30 Troponin I 0.027 EKG Comments: Telemetry strips reviewed showed mild intermittent bradycardia, no sustained tachyarrhythmias noted Impressions: Chest/Abdomen CTA 09/13/16 00:00 IMPRESSION: NORMAL CTA OF THE CHEST. NO PULMONARY EMBOLI. Chest X-Ray 09/13/16 08:45 IMPRESSION: NO ACUTE RADIOGRAPHIC FINDING IN THE CHEST. Assessment & Plan - Diagnosis (1) Acute coronary syndrome Is this a current diagnosis for this admission?: Yes (2) Coronary artery disease Qualifiers: Coronary Disease-Associated Artery/Lesion type: [place] artery [place] vs. transplanted heart: [place] heart Associated angina: with unstable angina Qualified Code(s): I25.110 - Atherosclerotic heart disease of [place] coronary artery with unstable angina pectoris Is this a current diagnosis for this admission?: Yes (3) Chest pain Qualifiers: Chest pain type: unspecified Qualified Code(s): R07.9 - Chest pain, unspecified Is this a current diagnosis for this admission?: Yes (4) Hypertension Qualifiers: Hypertension type: essential hypertension Qualified Code(s): I10 - Essential (primary) hypertension Is this a current diagnosis for this admission?: Yes (5) Hypothyroid Qualifiers: Hypothyroidism type: acquired Qualified Code(s): E03.9 - Hypothyroidism, unspecified Is this a current diagnosis for this admission?: Yes (6) Tobacco abuse Is this a current diagnosis for this admission?: Yes - Notes Notes: Acute coronary syndrome: This is strongly suspected based on patient's symptoms , positive stress test and some minor nonspecific T-wave inversion. At this point will treat patient with full dose anticoagulation, antiplatelet therapy, statins, beta-ivan, angiotensin receptor blockers. Have added Ranexa. Have added long-acting nitrates last night. Patient has been stable without any recurrent chest pain. Patient does not want heart catheterization at this time. Coronary artery disease: Patient gives history of stent placement in October. Currently symptoms indicative of acute coronary syndrome. Discussed pursuing heart catheterization. Patient wants medical therapy at this point. This will not be an unreasonable option in view of small area of mild ischemia being noted. Chest pain: Most likely related to cardiac ischemia but continue on proton pump inhibitor, Protonix preferred but not on the formulary here. Hypertension: Reasonably well controlled. Blood pressure goal in this patient is 135/85 or less. This was discussed with the patient. Currently blood pressure under reasonable control. Better medication for this patient are MARJAN inhibitor/ARB/beta ivan etc. discussed side effects of uncontrolled hypertension and also severe hypotension. Tobacco abuse: Patient has been advised to quit smoking. She is not keeping any commitment to quit at this point. Hypothyroidism: Continue replacement therapy. Dyslipidemia: Continue high potency statin therapy. Have added fenofibric acid as triglycerides were noted to be significantly elevated. In addition reduced dose of Lipitor to 40 mg p.o. nightly. Plan would be to have patient ambulate in the hallway, if she does better, consider discharge tomorrow in the morning. However if recurrent chest pain, recommend transferring to tertiary care for heart catheterization if patient is agreeable. - Time Time with patient: Greater than 35 minutes - CODE STATUS was discussed, patient remains full code. Surrogate decision-maker unchanged. Multiple medical problems were addressed. More than 50% of the time spent coordinating care, discussing management plans with involved caregivers. Management plans discussed with involved personnels. Medical decision making was of high complexity, patient's has multiple comorbidities. Medications reviewed and adjusted accordingly: Yes
--- NOTE | 2016-09-15 14:19 | PROGRESS NOTE E ---
Progress Note NAME: JHON HUBBARD : 1960 AGE: 55Y DATE: 09/14/2016 ROOM: 320 SUBJECTIVE: The patient was seen approximately 1600 on rounds. The patient states that she has not had any reoccurrence of her symptoms that brought her in. The patient states that overall she feels much improved in comparison to admission. The patient does admit to some shortness of breath with exertion, but denies any reoccurrence of chest pain. The patient has been afebrile. Her blood pressures have been in a good range, and the patient does not voice any other concerns at this time. REVIEW OF SYSTEMS: Rest of review of systems negative. MEDICATIONS: Medications have been reviewed. OBJECTIVE: GENERAL: The patient is a 55-year-old female who is awake, alert, and oriented to person, place, time, and situation. She is verbal, conversational, does not appear to be in any acute distress. VITAL SIGNS: Temperature is 98.0, pulse 65, respirations 18, blood pressure is 108/60, oxygen saturation is 93% on room air. SKIN: Warm and dry. No rash. Not diaphoretic. HEENT: Pupils equal, round, and reactive to light and accommodation. Conjunctivae is pink. No JVP. CARDIOVASCULAR SYSTEM: Heart is regular. There is no murmur or rub. CHEST: Clear, symmetrical, unlabored. ABDOMEN: Soft, nontender, nondistended. BACK: No CVA tenderness or sacral edema. EXTREMITIES: No clubbing, cyanosis, edema. PSYCHIATRIC: Patient is slightly agitated. DIAGNOSTICS: Lab values are as follows: Hematology obtained on 09/15/2016: WBCs are 6.5, hemoglobin is 13.6, hematocrit is 40.4, platelet count is 202,000. Chemistry obtained on 09/14/2016: Trig are 382, cholesterol is 217, LDL less than 30, VLDL is 76, HDL is 32. IMPRESSION AND PLAN: 1. CHEST PAIN AND PRESENCE OF CORONARY ARTERY DISEASE. The patient underwent a stress test today. Given that the patient did have some abnormal findings on stress test, will consult Cardiology for input. The patient does have known CAD, so will maximize medical therapies and follow. 2. DYSLIPIDEMIA. Will continue statin. Recommend cardiac rehab. 3. TOBACCO DEPENDENCY. Spent 3 minutes discussing smoking cessation education. The patient declines any pharmacological intervention at this time; however, will continue p.r.n. nicotine patch. 4. HYPOTHYROIDISM. Will continue the patient's home medications. DISPOSITION: The patient is a FULL CODE. Pending patient's symptomatology and diagnostic findings as well as Cardiology's input, will re-evaluate in the a.m. Time spent on this followup including assessment, plan, physical examination, patient education, and specialty collaboration is 25 minutes. ADDENDUM: The patient was seen by Cardiology and recommendations were made for the patient to be transferred for cardiac catheterization. The patient adamantly declined this, stating that she had been cathed in the past year and did not want a repeat of this. The patient was not interested in transferring to another facility. The patient is aware that this is the treatment plan that is optimal and tertiary transfer would be in her best interest; however, the patient has declined this and is aware of the risks versus benefits of such, but the patient is agreeable to staying in house for further observation and management. Therefore, the patient will be re-evaluated in the a.m. DICTATING PHYSICIAN: GONZALES MORAN NP [id number] PHY#: [id number] ID: [id number] JOB#: [id number] ACCT: [id number] cc: > MTDD
--- NOTE | 2016-09-15 16:23 | DISCHARGE SUMMARY E ---
Discharge Summary NAME: JHON RUBIN : 1960 AGE: 55Y ADMITTED: 09/13/2016 DISCHARGED: 09/15/2016 CODE STATUS: FULL CODE. PRIMARY CARE PROVIDER: JETHRO GLASGOW MD OUTPATIENT DOG HANDLER OR TRAINER: ROLF SOLIZ MD - [facility]. CONSULTING DOG HANDLER OR TRAINER: ASTER CHINCHILLA MD DISCHARGE DIAGNOSES: Includes: 1. Acute coronary syndrome. 2. Known coronary artery disease. 3. Dyslipidemia. 4. Tobacco dependency. 5. Hypothyroidism. DISCHARGE MEDICATIONS: Include: 1. Ranexa 500 mg p.o. q. 12 hours (60 tablets, 0 refills). 2. Toprol XL 25 mg p.o. q. 12 hours (60 tablets, 0 refills). 3. Imdur 30 mg p.o. daily (30 tablets, 0 refills). 4. Pepcid 20 mg p.o. b.i.d. (12 tablets, 0 refills). 5. Plavix 75 mg p.o. daily (30 tablets, 0 refills). 6. Levothyroxine 25 mcg p.o. q. hour of sleep. 7. Trazodone 150 mg p.o. q. hour of sleep. 8. Zoloft 100 mg p.o. q. hour of sleep. 9. Seroquel 25 mg p.o. t.i.d. 10. Hyzaar 100/12.5 mg one tablet p.o. q. hour of sleep. 11. Lipitor 80 mg p.o. q. hour of sleep. 12. Aspirin 81 mg p.o. daily. DIET: Cardiac, as tolerated. ACTIVITY: As tolerated. DIAGNOSTIC DATA: Lab values are as follows: Hematology obtained on 09/15/2016: WBCs are 6.5; hemoglobin is 13.3; hematocrit is 40.4; platelet count is 202,000. Chemistries obtained on 09/14/2016: Sodium is 141, potassium 4.4, chloride is 110, carbon dioxide 22, BUN 11, creatinine 0.75, glucose 90, calcium is 9.4, bilirubin is 0.5, AST is 28, ALT is , alk phos 76. CK 79. Total protein 6.5, albumin 3.8. Triglycerides are 382, cholesterol is 217, LDL is less than 30, VLDL is 76, HDL is 32. CK-MB is 1.35. Troponin is 0.027. Chest and abdominal CT obtained on 09/13/2016 reveals a normal CTA of the chest without pulmonary emboli. Chest x-ray obtained on 09/13/2016 reveals no acute radiographic finding of the chest. Cardiolite stress test obtained on 09/13/2016 reveals mild transient perfusion defect consistent with mild ischemia noted to the basal and mid inferior wall. There is no definite evidence of CT. EF is noted to be approximately 60%. Echocardiogram obtained on 09/14/2016 reveals mild to moderate diastolic dysfunction with mild left ventricular hypertrophy. HISTORY OF PRESENT ILLNESS: The patient is a 55-year-old female with a past medical history of known coronary artery disease and subsequent stent placement. The patient presented to the emergency department with a chief complaint of chest pain and shortness of breath. The patient noted on and off shortness of breath as well as chest pain and lethargy since 3 days prior to presentation. The patient stated that she had an episode of chest pain, which lasted approximately 15 minutes in her chest associated with some shortness of breath, diaphoresis, and a pain shooting into her jaw and her left shoulder. The patient had not had any symptoms like this prior. The patient stated symptoms were more frequent over the past day. Therefore, she sought attention. The patient did have 3 stents placed in 10/2016 to her RCA and 1 in her circumflex. The patient is followed by Dr. Soliz with [facility]. The patient denied any alcohol or drug use. Upon presentation to the emergency department, the patient was noted to have a troponin of 0.049, unremarkable CTA. EKG was not reflective of any acute changes. The patient was referred to the hospitalist for observation and management. HOSPITAL COURSE: The patient was observed in continuous telemetry unit. Serial cardiac enzymes were obtained, which peaked at 0.049 and trended down to 0.027. The patient did not have any replication of symptoms and was maximized on medication therapies. The patient did undergo a stress test with slightly abnormal findings noted, as addressed above. Given the patient's history and risk factors, Dr. Chinchilla of Cardiology was consulted. The patient was seen and evaluated by Dr. Chinchilla and recommendations were made for cardiac catheterization, which the patient adamantly refused. The patient refused catheterization and transfer to an outside facility, stating that she had just gone through this over a year ago and was not going to proceed with this. The patient is aware that this is against medical advice and the risks associated with this include recurrent myocardial infarction and possible . The patient was adamant that she would leave, but did agree to stay over 1 night for further observation, but intended to leave against medical advice the morning of 09/15/2016. 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 The patient has been really hostile to nursing staff and Cardiology, demanding immediate release from the hospital. TIME: Time spent on this discharge including speciality collaboration and resource alignment is 25 minutes. DICTATING PHYSICIAN: GONZALES MORAN NP [id number] PHY#: [id number] ID: [id number] JOB#: [id number] ACCT: [id number] cc:GONZALES MORAN NP > MTDD
[2016-09-15] MEDS ORDERED: ATORVASTATIN CALCIUM 40 MG TABLET PO SCH (22:00)
== END 2016-09-15 11:58 | disposition home or self-care (01) ==
LOC: ER 08:29 → EH 10:01 → INTOOBSV 10:08 → EH 10:08 → UNDOADMOB 10:08 → 3W 11:21 → EH 11:21
PROVIDERS: ADMIT Internal Medicine; ATTEND Internal Medicine
PROC: 3E0F7GC Introduction of Other Therapeutic Substance into Respiratory Tract, Via Natural or Artificial Opening (ICD-10-PCS; principal; 2016-09-13)
PROC: HZ31ZZZ Individual Counseling for Substance Abuse Treatment, Behavioral (ICD-10-PCS; 2016-09-13)
DX: I24.9 Acute ischemic heart disease, unspecified (principal); E78.5 Hyperlipidemia, unspecified; F17.210 Nicotine dependence, cigarettes, uncomplicated; E03.9 Hypothyroidism, unspecified; E06.3 Autoimmune thyroiditis; I25.110 Atherosclerotic heart disease of native coronary artery with unstable angina pectoris; R94.39 Abnormal result of other cardiovascular function study; I10 Essential (primary) hypertension; I25.2 Old myocardial infarction; Z79.899 Other long term (current) drug therapy; Z79.82 Long term (current) use of aspirin; Z79.02 Long term (current) use of antithrombotics/antiplatelets; Z95.5 Presence of coronary angioplasty implant and graft; Z82.49 Family history of ischemic heart disease and other diseases of the circulatory system; Z53.29 Procedure and treatment not carried out because of patient's decision for other reasons; Z90.49 Acquired absence of other specified parts of digestive tract; Z87.09 Personal history of other diseases of the respiratory system
CPT/HCPCS: 93005; 94640; 99285; 36415 ×3; 82553; 82550; 85025; 85027; 80053; 84484 ×2; 80061; 93306; 93017; 71010; 78452; 71275; 93010; 99406; G0378 ×4; A9500; J3490 ×4; J2785; J1650 ×2; J0280; J7620; Q9969

== ENCOUNTER → 2016-12-08 | Outpatient (CLI) | payer OTHER ==
--- NOTE | 2016-12-08 10:14 | WOMENS IMAGING REPORT ---
EXAM DESCRIPTION: BILAT SCREENING MAMMO W/CAD COMPLETED DATE/TIME: 12/08/2016 8:57 am REASON FOR STUDY: ROUTINE SCREENING; Z12.31 Z12.31 ENCNTR SCREEN MAMMOGRAM FOR MALIGNANT NEOPLASM O F NAMRATA COMPARISON: Multiple since 2009 TECHNIQUE: Standard craniocaudal and mediolateral oblique views of each breast recorded using digita l acquisition. LIMITATIONS: None. FINDINGS: No masses, calcifications or architectural distortion. No areas of suspicion. Read with the assistance of CAD. .[facility] - R2 Cenova Version 1.3 .[facility] - R2 Cenova Version 1.3 .[facility] - R2 Cenova Version 2.4 .[facility] - R2 Cenova Version 2.4 .[facility] - R2 Jewelry Bench Worker Version 9.2 IMPRESSION: NORMAL MAMMOGRAM. BIRADS 1. BREAST DENSITY: c. The breasts are heterogeneously dense, which may obscure small masses. BIRAD: 1 NEGATIVE RECOMMENDATION: ROUTINE SCREENING Please consider yearly screening tomosynthesis in November 2017, given heterogeneously dense tissue COMMENT: The patient has been notified of the results by letter per SA requirements. Additional no tification policies are in place for contacting patient with suspicious or incomplete findings. Quality ID #[id number]: The [employer] recommends an annual screening mammogram for women aged 40 years or over. This facility utilizes a reminder system to ensure that all patients receive reminder letters, and/or direct phone calls for appointments. This includes reminders for routine scr eening mammograms, diagnostic mammograms, or other Breast Imaging Interventions when appropriate. Th is patient will be placed in the appropriate reminder system. The [employer] (ACR) has developed recommendations for screening MRI of the breast s in certain patient populations, to be used in conjunction with mammography. Breast MRI surveillanc e may be appropriate for women with more than 20% lifetime risk of developing breast cancer as deter mined by genetic testing, significant family history of the disease, or history of mantle radiation f or Hodgkins Disease. ACR Practice Guidelines 2008. TECHNICAL DOCUMENTATION: FINDING NUMBER: (1) ASSESSMENT: (1) JOB ID: [id number] [employer]- All Rights Reserved
== END ==
LOC: WI 08:42
PROVIDERS: ATTEND Family Medicine
DX: Z12.31 Encounter for screening mammogram for malignant neoplasm of breast (principal)
CPT/HCPCS: 77067; G0202

== ENCOUNTER → 2018-04-12 | Outpatient (CLI) | payer OTHER ==
--- NOTE | 2018-04-12 09:14 | WOMENS IMAGING REPORT ---
EXAM DESCRIPTION: 3D SCREENING MAMMO BILAT COMPLETED DATE/TIME: 04/12/2018 8:48 am REASON FOR STUDY: ROUTINE 3D BILATERAL SCREENING,Z12.31 Z12.31 ENCNTR SCREEN MAMMOGRAM FOR MALIGNAN T NEOPLASM OF NAMRATA COMPARISON: [id number] TECHNIQUE: Standard craniocaudal and mediolateral oblique views of each breast recorded using digita l acquisition and breast tomosynthesis. LIMITATIONS: None. FINDINGS: Findings present which are benign by mammographic criteria. No suspicious masses, calcifi cations or architectural distortion. Pertinent benign findings: Stable calcifications. Read with the assistance of CAD. .[facility] - R2 Cenova Version 1.3 .[facility] - R2 Cenova Version 2.1 .[facility] Imaging - R2 Cenova Version 2.4 .[facility] - R2 Cenova Version 2.4 .[facility] - R2 Consulting Sales Executive Version 9.2 Benign mammographic findings may include one or more of the following: Smooth masses, popcorn/rim/co arse calcifications, asymmetries, post-procedure changes, and lesions with long-standing stability. IMPRESSION: BENIGN MAMMOGRAPHIC FINDINGS. BIRADS 2 BREAST DENSITY: c. The breasts are heterogeneously dense, which may obscure small masses. BIRAD: 2 BENIGN FINDING(S) RECOMMENDATION: RECOMMENDATION: ROUTINE SCREENING COMMENT: The patient has been notified of the results by letter per SA requirements. Additional no tification policies are in place for contacting patient with suspicious or incomplete findings. Quality ID #[id number]: The [employer] recommends an annual screening mammogram for women aged 40 years or over. This facility utilizes a reminder system to ensure that all patients receive reminder letters, and/or direct phone calls for appointments. This includes reminders for routine scr eening mammograms, diagnostic mammograms, or other Breast Imaging Interventions when appropriate. Th is patient will be placed in the appropriate reminder system. The [employer] (ACR) has developed recommendations for screening MRI of the breast s in certain patient populations, to be used in conjunction with mammography. Breast MRI surveillanc e may be appropriate for women with more than 20% lifetime risk of developing breast cancer as deter mined by genetic testing, significant family history of the disease, or history of mantle radiation f or Hodgkins Disease. ACR Practice Guidelines 2008. DBT Technology DBT is a type of tomographic mammography. With conventional mammography, overlapping breast tissue ma y make lesions difficult to detect, even with good compression. DBT uses an x-ray tube that rotates a round the breast, taking images at different angles. These images are then combined to create thin sl ices of the breast that the radiologist can view as a 3D reconstruction. The 36Kr unit can perform full-field digital mammograms (2D imaging); or DBT (3D imaging); or both, in a combination mode that quickly performs both the mammogram and the tomosynthesis scan while the breast is still compressed. PQRS 6045F: Fluoroscopic imaging is not utilized for breast tomosynthesis. TECHNICAL DOCUMENTATION: FINDING NUMBER: (1) ASSESSMENT: (1) JOB ID: [id number] [employer]- All Rights Reserved Reading location - IP/workstation name: [email or web address]
== END ==
LOC: WI 08:29
PROVIDERS: ATTEND Family Medicine
DX: Z12.31 Encounter for screening mammogram for malignant neoplasm of breast (principal)
CPT/HCPCS: 77063; 77067